=== PATIENT | female | born 1980 | race Caucasian/White ===

== ENCOUNTER 2018-04-11 01:04 | Emergency (ER) | END 2018-04-11 05:21 | disposition home or self-care (01) ==

== ENCOUNTER 2019-02-16 11:59 | Emergency (ER) | payer BC, OTHER ==
[~2019-02-16] VITALS: Wt 99.5 kg
[~2019-02-16 11:59] MED LIST: HYDR-4011 PO; IBUP-1542 PO
== END 2019-02-16 12:40 | disposition home or self-care (01) ==
LOC: E/R 11:59
DX: M25.561 Pain in right knee (principal); G89.29 Other chronic pain
CPT/HCPCS: 99283